=== PATIENT | female | born 1965 | race Asian ===

== ENCOUNTER 2017-02-11 15:30 | Emergency (ER) | payer OTHER ==
[~2017-02-11] VITALS: Ht 152.4 cm; Wt 64.5 kg
[2017-02-11 15:41] VITALS: Ht 152.4 cm; Wt 64.5 kg
[2017-02-11] MEDS ORDERED: SOD CHLORIDE 0.9% 1,000 ML IV STA (16:12)
[2017-02-11] MEDS ORDERED: morphine 4 MG/ML VIAL IV STA ×3 (16:12→18:05)
[2017-02-11] MEDS ORDERED: ONDANSETRON 4 MG INJ IV STA ×3 (16:12→18:05)
--- NOTE | 2017-02-11 16:33 | ERD ---
ER Documentation Chief Complaint Date/Time DATE: 02/11/17 TIME: 16:22 Chief Complaint pt oneyda family for left calf pain and dysuria , sent by PMD HPI 51-year-old female with a history of type 2 diabetes presents to the emergency department for complaints of dysuria, increased frequency of urination, lower midline pelvic pain, and subjective fever 2 days. Patient reports previous similar symptoms related to urinary tract infection. She has attempted to treat her symptoms with [id number] Azo without improvement. She states her pain is now a 10 out of 10 constant burning lower pelvic pain, worse with urination. Patient was seen by her primary care physician, Dr Toussaint, today who referred her to the emergency department as patient also noted bilateral lower leg pain. He sent a referral for bilateral lower extremity duplex series. Patient denies flank pain, headache, dizziness, chest pain, shortness of breath, other abdominal pain, vaginal discharge, nausea, vomiting, or diarrhea. ROS All systems reviewed and are negative except as per history of present illness. Medications Home Meds Active Scripts Cephalexin* (Keflex*) 500 Mg Capsule, 500 MG PO QID for 7 Days, CAP Prov:MOR HOPKINS PA-C 02/11/17 Ibuprofen* (Motrin*) 600 Mg Tab, 600 MG PO Q6, #30 TAB Prov:MOR HOPKINS PA-C 02/11/17 Hydrocodone/Acetaminophen ([place] 5-325 Tablet) 1 Each Tablet, 1 TAB PO Q6H Y for PAIN, #10 TAB Prov:MOR HOPKINS PA-C 02/11/17 Allergies Allergies: Coded Allergies: Penicillins (Verified Allergy, Mild, 02/11/17) Physical Exam Vitals Vital Signs Date Time Temp Pulse Resp B/P Pulse Ox O2 Delivery O2 Flow Rate FiO2 02/11/17 15:41 98.3 87 16 125/79 100 Physical Exam Const: Well-developed, well-nourished, in mild distress Head: Atraumatic Eyes: Normal Conjunctiva Neck: Full range of motion..~ No meningismus. Resp: Clear to auscultation bilaterally Cardio: Regular rate and rhythm, no murmurs Abd: Mildly distended, slight tenderness at lower midline pelvic region, otherwise nontender, normal bowel sounds. Skin: No petechiae or rashes Back: No midline or flank tenderness Ext: No cyanosis, or edema Neur: Awake and alert Psych: Normal Mood and Affect Result Diagram: 02/11/17 1715 Results 24 hrs Laboratory Tests Test 02/11/17 16:35 02/11/17 17:15 Urine Color YELLOW Urine Clarity CLEAR Urine pH 6.0 Urine Specific [place] 1.000 Urine Ketones NEGATIVEmg/dL Urine Nitrite NEGATIVEmg/dL Urine Bilirubin NEGATIVEmg/dL Urine Urobilinogen NEGATIVEmg/dL Urine Leukocyte Esterase 3+Pia/ul Urine Microscopic RBC 0/HPF Urine Microscopic WBC 23/HPF Urine Hemoglobin 3+mg/dL Urine Glucose 3+mg/dL Urine Total Protein NEGATIVEmg/dl White Blood Count 14.110^3/ul Red Blood Count 4.7410^6/ul Hemoglobin 13.9g/dl Hematocrit 41.3% Mean Corpuscular Volume 87.1fl Mean Corpuscular Hemoglobin 29.3pg Mean Corpuscular Hemoglobin Concent 33.7g/dl Red Cell Distribution Width 13.0% Platelet Count 54253^3/UL Mean Platelet Volume 10.4fl Neutrophils % 63.6% Lymphocytes % 25.4% Monocytes % 8.9% Eosinophils % 1.5% Basophils % 0.1% Nucleated Red Blood Cells % 0.0/100WBC Neutrophils # (Manual) 9.010^3/ul Lymphocytes # 3.610^3/ul Monocytes # 1.310^3/ul Eosinophils # 0.210^3/ul Basophils # 0.010^3/ul Nucleated Red Blood Cells # 0.010^3/ul Current Medications Medications (Trade) Dose Ordered Sig/Es Route PRN Reason Start Time Stop Time Status Last Admin Dose Admin Sodium Chloride (NS) 1,000 ml @ 1,000 mls/hr Q1H STAT IV 02/11/17 16:12 02/11/17 17:11 DC 02/11/17 16:12 Morphine Sulfate (morphine) 4 mg ONCE STAT IV 02/11/17 16:12 02/11/17 16:16 DC 02/11/17 17:22 Ondansetron HCl 4 mg 4 mg ONCE STAT IV 02/11/17 16:12 02/11/17 16:16 DC 02/11/17 17:20 Ceftriaxone Sodium (Rocephin) 50 ml @ 100 mls/hr ONCE ONCE IVPB 02/11/17 17:30 02/11/17 17:59 DC 02/11/17 17:34 Morphine Sulfate (morphine) 4 mg ONCE STAT IV 02/11/17 17:29 02/11/17 17:36 DC Ondansetron HCl (Zofran Inj) 4 mg ONCE STAT IV 02/11/17 17:29 02/11/17 17:36 DC Procedures/MDM PROCEDURE: US Lower extremity Venous. CLINICAL INDICATION: Bilateral lower extremity edema , pain TECHNIQUE: Multiple sonographic images of the bilateral lower extremity deep venous system was obtained utilizing grayscale, color-flow, compressive sonography and doppler imaging with augmentation. The images were reviewed on a PACS workstation. COMPARISON: None. FINDINGS: There is normal compressibility and flow within the bilateral common femoral, femoral , posterior tibial and popliteal veins. RPTAT: AA IMPRESSION: No sonographic evidence for deep venous thrombosis. .David Boles MD, MD Date Time Electronically viewed and signed by .David Boles MD, MD on 02/11/2017 17: 14 .S/ CC: MOR HOPKINS PA-C This is a 51-year-old female with a history of type II diabetes who presents the emergency department for complaints of dysuria, increased urinary frequency , subjective fever, and bilateral lower leg pain 2 days. Patient notes similar prior urinary symptoms related to urinary tract infection however has never experienced the leg pain and therefore was sent to the emergency department by her primary physician, Dr. Toussaint for bilateral duplex ultrasound to rule out DVT. She denies any prolonged immobilization, recent surgery, chest pain, or shortness of breath. Vital signs reviewed. Patient afebrile, non-tachycardic, normotensive and non-hypoxic upon arrival. She is moving air well. Physical exam without evidence of significant calf swelling or tenderness. Upon exam patient with midline lower pelvic tenderness. No flank or other abdominal tenderness. CBC leukocytosis of 14.1. No evidence of severe anemia. CMP pending results UA with evidence of 3+ leukocyte esterase, 3+ hematuria, 3+ glucose, and bacteremia. Urine negative for ketones or proteinuria. Creatinine kinase pending results Bilateral lower extremity ultrasound without evidence of acute DVT. Patient received a bolus of fluids as well as pain and nausea medication while in the emergency department and reports some improvement of her pain symptoms but still notes a burning sensation. She received the first dose of antibiotics while in the emergency department. Patient to continue antibiotics for her urinary tract infection. I have also recommended fluids, Motrin, Tylenol. Departure Diagnosis: Primary Impression: Dysuria Additional Impressions: Leg pain Laterality: bilateral Qualified Code: M79.604 - Pain in both lower extremities UTI (urinary tract infection) Urinary tract infection type: site unspecified Hematuria presence: with hematuria Qualified Code: N39.0 - Urinary tract infection with hematuria, site unspecified MOR HOPKINS PA-C Feb 11, 2017 16:33
--- NOTE | 2017-02-11 17:15 | RADRPT ---
PROCEDURE: US Lower extremity Venous. CLINICAL INDICATION: Bilateral lower extremity edema , pain TECHNIQUE: Multiple sonographic images of the bilateral lower extremity deep venous system was obt ained utilizing grayscale, color-flow, compressive sonography and doppler imaging with augmentation. The images were reviewed on a PACS workstation. COMPARISON: None. FINDINGS: There is normal compressibility and flow within the bilateral common femoral, femoral , posterior ti bial and popliteal veins. RPTAT: AA IMPRESSION: No sonographic evidence for deep venous thrombosis. .David Boles MD, MD Date Time Electronically viewed and signed by .David Boles MD, on 02/11/2017 17:14 .S/
[2017-02-11 17:18] LABS: ADD UMIC YES; UR ASCORBIC ACID NEGATIVE (NEGATIVE); UR BILIRUBIN (Dip) NEGATIVE (NEGATIVE); UR BLOOD (Dip) 3+ mg/dL (NEGATIVE); UR CLARITY CLEAR (CLEAR); UR COLOR YELLOW (YELLOW); UR GLUCOSE (Dip) 3+ mg/dL (NEGATIVE); UR KETONES (Dip) NEGATIVE (NEGATIVE); UR LEUKOCYTE ESTERASE (Dip) 3+ Leu/ul (NEGATIVE); UR NITRITE (Dip) NEGATIVE (NEGATIVE); UR RBC 0 /HPF (0-5); UR TOTAL PROTEIN (Dip) NEGATIVE (NEGATIVE); UR UROBILINOGEN (Dip) NEGATIVE (NEGATIVE)
[2017-02-11] MEDS ORDERED: CEFTRIAXONE 1 GM/50 ML (PMX) 50 ML IVPB ONE (17:30)
[2017-02-11 17:39] LABS: BASOPHILS % 0.1 % (0.0-2.0); EOSINOPHILS # 0.2 10^3/ul (0.0-0.5); EOSINOPHILS % 1.5 % (0.0-7.0); HEMATOCRIT 41.3 % (37.0-47.0); HEMOGLOBIN 13.9 g/dl (12.0-16.0); LYMPHOCYTES # 3.6 10^3/ul (0.8-2.9); LYMPHOCYTES % 25.4 % (15.0-51.0); MEAN CORPUSCULAR HEMOGLOBIN 29.3 pg (29.0-33.0); MEAN CORPUSCULAR HGB CONC 33.7 g/dl (32.0-37.0); MEAN CORPUSCULAR VOLUME 87.1 fl (82.0-101.0); MEAN PLATELET VOLUME 10.4 fl (7.4-10.4); MONOCYTE # 1.3 10^3/ul (0.3-0.9); MONOCYTES % 8.9 % (0.0-11.0); NEUTROPHILS % 63.6 % (39.0-77.0); PLATELET COUNT 279 10^3/UL (140-415); RED BLOOD COUNT 4.74 10^6/ul (4.20-5.40); WHITE BLOOD COUNT 14.1 10^3/ul (4.8-10.8)
[2017-02-11] MEDS ORDERED: IBUP-1542 PO (17:56)
[2017-02-11] MEDS ORDERED: HYDR-906 PO (17:56)
[2017-02-11] MEDS ORDERED: CEPH-443 PO (17:56)
[2017-02-11 18:23] LABS: ALBUMIN 4.8 g/dl (3.3-4.9); ALBUMIN/GLOBULIN RATIO 1.14; BILIRUBIN,INDIRECT 0.7 mg/dl (0-1.1); BILIRUBIN,TOTAL 0.7 mg/dl (0.2-1.3); CALCIUM 10.3 mg/dl (8.4-10.2); CREATININE 0.54 mg/dl (0.44-1.00)
[2017-02-11] MEDS ORDERED: SOD CHLORIDE 0.9% 1,000 ML IV ONE (18:30)
--- NOTE | 2017-02-11 19:27 | EN ---
Date/Time of Note Date/Time of Note DATE: 02/11/17 TIME: 19:26 ER Progress Note Patient was signed out to me by Alma Rosa Ojeda PA-C pending laboratory results. Patient has a elevated white blood cell count of 14.1. She is not anemic. Platelets are within normal limits. Sodium was mildly decreased however patient was given 2 L of fluids. Liver enzymes are elevated. Lipase is within normal limits. UA showed 3+ leukocyte Estrace. This is likely the source of the patient's dysuria. Patient was given Rocephin here in the emergency department. Patient will be discharged home with [place], Keflex, ibuprofen as prescribed by CHUN Zelaya PA-C, PA-C Feb 11, 2017 19:27
[2017-02-11 19:57] VITALS: BP 123/79; PULSE 95; RESP 16; TEMP 98.7
== END 2017-02-11 19:58 | disposition home or self-care (01) ==
LOC: FTE 15:30
DX: R30.0 Dysuria (principal); M79.604 Pain in right leg; M79.605 Pain in left leg; N39.0 Urinary tract infection, site not specified; E11.9 Type 2 diabetes mellitus without complications
CPT/HCPCS: 36415; 80053; 81001; 83690; 84703; 85025; 93970; 96374; 96375; 96376; 99285; J0696; J2270; J2405; J7030